=== PATIENT | male | born 1960 | race Caucasian/White ===

== ENCOUNTER → 2022-03-05 | Outpatient (CLI) | payer MEDICARE ==
--- NOTE | 2022-03-05 12:15 | MR ---
EXAMINATION TYPE: MR iac wo/w con DATE OF EXAM: 03/05/2022 COMPARISON: None HISTORY: Hearing loss TECHNIQUE: Multiplanar, multisequence images of IAC is performed without and with IV contrast, utilizing 11 mL i ntravenous Gadavist . FINDINGS: Diffusion weighted images demonstrate no evidence of a recent infarct or other diffusion ab normality. There is no extra-axial fluid collection or significant white matter signal abnormality. The ventricular system and cisternal spaces are normal in size and appearance. Mild to moderate gene ralized degenerative change. Areas of abnormal signal white matter are nonspecific but most typical o f remote ischemia. Midline structures demonstrate normal morphology. The craniocervical junction appears within normal limits. Post contrast images demonstrate no abnormal enhancement. The dural venous sinuses appear pa tent. Changes of chronic sinusitis. Orbits are symmetric. Nasal septal deviation noted. Mild changes of chronic mastoiditis. There is no evidence of cerebellopontine angle mass or acoustic schwannoma.. IMPRESSION: 1. No evidence of cerebellopontine angle mass or sizable acoustic schwannoma. 2. Mild bilateral chronic mastoiditis.
== END | disposition home or self-care (01) ==
LOC: RADMRIMAIN 09:10
PROVIDERS: ATTEND Otolaryngology Otolaryngic Allergy
DX: H91.22 Sudden idiopathic hearing loss, left ear (principal); H70.13 Chronic mastoiditis, bilateral
CPT/HCPCS: 70553; A9585